=== PATIENT | male | born 1955 | race Two or more races ===

== ENCOUNTER 2025-02-05 21:55 | Emergency (ER) | payer OTHER, MEDICARE ==
[~2025-02-05] VITALS: Ht 170.2 cm; Wt 77.1 kg
[2025-02-05] MEDS ORDERED: MORPHINE SULFATE 4 MG/1 ML DISP.SYRIN ONE (22:19)
[2025-02-05] MEDS ORDERED: ONDANSETRON 4 MG/2 ML VIAL ONE (22:19)
[2025-02-05] MEDS: MORPHINE SULFATE 4 MG/1 ML DISP.SYRIN IV ONE (22:23)
[2025-02-05] MEDS: ONDANSETRON 4 MG/2 ML VIAL IV ONE (22:23)
[2025-02-05 22:32] LABS: BASOPHILS % (AUTO) 0.1 % (0.0-2.0); EOSINOPHILS % (AUTO) 0.6 % (0.0-7.0); HEMOGLOBIN 13.6 g/dL (12.5-16.3); LYMPHOCYTES # (AUTO) 0.1 K/uL (0.8-4.8); LYMPHOCYTES % (AUTO) 2.4 % (20.5-51.5); MEAN CORPUSCULAR HEMOGLOBIN 33.2 uug (23.8-33.4); MEAN CORPUSCULAR HGB CONC 36 g/dL (32.5-36.3); MEAN CORPUSCULAR VOLUME 92.9 fL (73.0-96.2); MONOCYTES # (AUTO) 0.4 K/uL (0.1-1.30); MONOCYTES % (AUTO) 6.2 % (0.0-11.0); NEUTROPHILS # (AUTO) 5.2 K/uL (1.8-8.9); NEUTROPHILS % (AUTO) 90.7 % (38.5-71.5); PLATELET COUNT (AUTO) 188 K/uL (152-348); RED BLOOD CELL COUNT(AUTO) 4.09 MIL/uL (4.06-5.63); RED CELL DISTRIBUTION WIDTH 14.2 % (12.1-16.2); WHITE BLOOD COUNT (AUTO) 5.7 K/uL (3.6-10.2)
[2025-02-05 22:33] LABS: DIFFERENTIAL COMMENT 1
[2025-02-05 22:38] LABS: CALCIUM 8.7 mg/dL (8.5-10.1); CARBON DIOXIDE 20 mmol/L (21-32); CHLORIDE 103 mmol/L (98-107); CREATININE 0.9 mg/dL (0.6-1.3); GLUCOSE 147 mg/dL (74-106); POTASSIUM 3.5 mmol/L (3.5-5.1); SODIUM SERUM 137 mmol/L (136-145); UREA NITROGEN, BLOOD 19 mg/dL (7-18)
[2025-02-05 22:44] LABS: ALANINE AMINOTRANSFERASE 20 U/L (16-63); ALBUMIN 3.3 g/dL (3.4-5.0); ALKALINE PHOSPHATASE 84 U/L (50-136); ASPARTATE AMINOTRANSFERASE 24 U/L (15-37); BILIRUBIN,DIRECT 0.4 mg/dL (0.0-0.2); BILIRUBIN,TOTAL 1.8 mg/dL (0.2-1.0)
[2025-02-05] MEDS ORDERED: SWABABLE VALVE TRANSFER SET EA MC ONE (23:29)
[2025-02-05] MEDS ORDERED: IV NORMAL SALINE 250 ML IV ONE (23:29)
[2025-02-05] MEDS ORDERED: IOHEXOL 350 100 ML INFUS..BTL ONE (23:29)
[2025-02-06] MEDS: IV NORMAL SALINE 1000 ML BAG IV ONE (01:05)
[2025-02-06] MEDS ORDERED: LANS30CA54 PO (02:25)
[2025-02-06] MEDS ORDERED: ACET650T10 PO (02:25)
[2025-02-06] MEDS ORDERED: KETOROLAC TROMETHAMINE 15 MG INJ ONE (02:29)
[2025-02-06] MEDS: KETOROLAC TROMETHAMINE 15 MG INJ IVP ONE (02:31)
[2025-02-06 02:52] VITALS: BP 134/90; O2SAT 95
== END 2025-02-06 02:52 | disposition home or self-care (01) ==
LOC: ER 21:55
DX: R07.9 Chest pain, unspecified (principal); R11.10 Vomiting, unspecified; J45.909 Unspecified asthma, uncomplicated; M06.9 Rheumatoid arthritis, unspecified; Z79.899 Other long term (current) drug therapy; Z20.822 Contact with and (suspected) exposure to COVID-19
CPT/HCPCS: 99285; 71260; 96374; 71045; 96375 ×2; 87426; 87804 ×2; 80076; 80048; 83690; 85025; 84145; 85651; 87040 ×2; 84484 ×3; 36415 ×2; 74177; 93005; 83605; J2405; Q9967; J2270; J1885; J7040; A4606; A4663